=== PATIENT | male | born 1990 | race Caucasian/White ===

== ENCOUNTER 2024-07-02 05:27 | Inpatient (IN) | payer MEDICAID ==
[~2024-07-02] VITALS: Ht 172.7 cm; Wt 84.4 kg
[2024-07-02] MEDS: KETOROLAC TROMETHAMINE 15 MG/ML VIAL IV ONE (06:30)
[2024-07-02] MEDS: PANTOPRAZOLE 40 MG VIAL IV ONE (06:30)
[2024-07-02] MEDS: ONDANSETRON HCL/PF 4 MG/2 ML VIAL IVP ONE (06:30)
[2024-07-02] MEDS: IV NS 0.9% 1,000 ML BAG IV ONE ×2 (06:30→10:00)
[2024-07-02] MEDS ORDERED: KETOROLAC TROMETHAMINE INJ 30 MG/ML VIAL ONE (06:39)
[2024-07-02] MEDS ORDERED: ONDANSETRON HCL/PF 4 MG/2 ML VIAL ONE (06:39)
[2024-07-02] MEDS ORDERED: PANTOPRAZOLE 40 MG VIAL ONE (06:39)
[2024-07-02] MEDS ORDERED: IOHEXOL-300 100 ML VIAL IV ONE (06:49)
[2024-07-02] MEDS ORDERED: IV NS 0.9% 250 ML IV ONE (06:49)
[2024-07-02] MEDS ORDERED: CT SWABBABLE VALVE TRANS SET 1 EA INFUS.SET MC ONE (06:49)
[2024-07-02 06:52] LABS: APPEARANCE,URINE CLEAR (CLEAR); BASOPHILS % (AUTO) 0.2 % (0.0-2.0); BILIRUBIN,URINE NEGATIVE (NEGATIVE); BLOOD, URINE NEGATIVE Ery/uL (NEGATIVE); COLOR,URINE YELLOW (YELLOW); EOSINOPHILS % (AUTO) 0.1 % (0.0-6.0); HEMATOCRIT 42 % (39-51); HEMOGLOBIN 14.2 g/dL (13.5-17.5); KETONES,URINE NEGATIVE (NEGATIVE); LEUKOCYTE ESTERASE ,URINE NEGATIVE (NEGATIVE); LYMPHOCYTES # (AUTO) 0.9 K/uL (0.8-4.8); LYMPHOCYTES % (AUTO) 6.3 % (20.0-44.0); MEAN CORPUSCULAR HEMOGLOBIN 29 PG (26.0-33.0); MEAN CORPUSCULAR HGB CONC 34 g/dl (31.0-36.0); MEAN CORPUSCULAR VOLUME 86 fL (80-96); MONOCYTES # (AUTO) 1.1 K/uL (0.1-1.30); MONOCYTES % (AUTO) 8.1 % (2.0-12.0); NEUTROPHILS # (AUTO) 11.6 K/uL (1.8-8.9); NEUTROPHILS % (AUTO) 85.3 % (43.0-81.0); NITRITE, URINE NEGATIVE (NEGATIVE); PLATELET COUNT (AUTO) 217 K/uL (150-450); PROTEIN,URINE NEGATIVE (NEGATIVE); RED BLOOD CELL COUNT(AUTO) 4.87 MIL/uL (4.5-6.0); RED CELL DISTRIBUTION WIDTH 13.3 % (11.5-15.0); UGLUCOSE NEGATIVE (NEGATIVE); UROBILINOGEN,URINE 0.2 EU/dL (0.2); WHITE BLOOD COUNT (AUTO) 13.6 K/uL (4.3-11.0)
[2024-07-02 07:05] LABS: CALCIUM, SERUM 9.2 mg/dL (8.5-10.1); CREATININE 1.1 mg/dL (0.6-1.3); POTASSIUM 3.4 mmol/L (3.5-5.1)
[2024-07-02 07:11] LABS: BILIRUBIN,DIRECT 0.2 mg/dL (0.0-0.2); BILIRUBIN,TOTAL 0.6 mg/dL (0.2-1.0); TOTAL PROTEIN, SERUM 8.5 g/dL (6.4-8.2)
[2024-07-02] MEDS: PIPERACILLIN /TAZOBACTAM 3.375 G in IV D5W 50 ML IV ONE (08:50)
[2024-07-02] MEDS: IV PREMIX D5 1/2NS + KCL 1,000 ML IV ONE (09:25)
[2024-07-02] MEDS ORDERED: Z GUARD REMEDY 4 OZ OINT TP PRN (10:30)
[2024-07-02] MEDS ORDERED: MAG HYDROX/AL HYDROX/SIMETH 30 ML UDC PO PRN (10:30)
[2024-07-02] MEDS ORDERED: ONDANSETRON HCL/PF 4 MG/2 ML VIAL IVP PRN (10:30)
[2024-07-02] MEDS ORDERED: MORPHINE SULFATE INJ 2 MG/ML DISP.SYRIN IV PRN (10:30)
[2024-07-02] MEDS ORDERED: PANTOPRAZOLE 40 MG VIAL IV SCH (10:30)
[2024-07-02] MEDS ORDERED: MAGNESIUM HYDROXIDE 30 ML UDC PO PRN (10:30)
[2024-07-02] MEDS ORDERED: PIPERACILLIN /TAZOBACTAM 3.375 G in IV D5W 50 ML IV SCH (12:00)
[2024-07-02] MEDS: PIPERACILLIN /TAZOBACTAM 3.375 G in IV D5W 100 ML IV SCH (13:40)
[2024-07-02] MEDS ORDERED: LIDOCAINE 1%-EPI 1:100,000 20 ML VIAL ONE (14:50)
[2024-07-02] MEDS ORDERED: BUPIVACAINE 0.5 % PF 150 MG/30 ML VIAL ONE (14:50)
[2024-07-02] MEDS ORDERED: BACITRACIN ZINC OINT (15 GM) 15 GM TUBE TP ONE (14:50)
[2024-07-02] MEDS ORDERED: FENTANYL PF 250MCG/5ML AMPUL ONE (15:00)
[2024-07-02] MEDS ORDERED: ROCURONIUM BROMIDE 50 MG/5 ML ONE (15:04)
[2024-07-02 16:45] VITALS: BP 107/56; TEMP 101.1; O2SAT 93
[2024-07-02] MEDS: ACETAMINOPHEN 325 MG TABLET PO PRN (16:58)
[2024-07-02 17:00] VITALS: BP 106/59; TEMP 100.2; O2SAT 94
[2024-07-02] MEDS: IV D5/ 0.9% NACL 1,000 ML IV PRN (17:08)
[2024-07-02 17:15] VITALS: BP 98/54; TEMP 99; O2SAT 95
[2024-07-02 17:30] VITALS: BP 105/58; TEMP 99.2; O2SAT 95
[2024-07-02 17:45] VITALS: BP 114/56; TEMP 99.5; O2SAT 95
[2024-07-02 22:00] VITALS: BP 116/65; TEMP 99; O2SAT 98
[2024-07-03] VITALS (7 sets, daily range): BP systolic 110–131; BP diastolic 65–70; TEMP 98–99.5; O2SAT 95–98
[2024-07-03] MEDS: HYDROMORPHONE INJ 2 MG/ML DISP.SYRIN IV PRN (00:23)
[2024-07-03] MEDS: PANTOPRAZOLE 40 MG VIAL IV SCH (08:23)
[2024-07-03 22:08] LABS: BASOPHILS % (AUTO) 0.3 % (0.0-2.0); EOSINOPHILS # (AUTO) 0.1 K/uL (0.0-0.7); EOSINOPHILS % (AUTO) 0.6 % (0.0-6.0); HEMATOCRIT 39 % (39-51); HEMOGLOBIN 13.2 g/dL (13.5-17.5); LYMPHOCYTES # (AUTO) 1.6 K/uL (0.8-4.8); LYMPHOCYTES % (AUTO) 15.2 % (20.0-44.0); MEAN CORPUSCULAR HEMOGLOBIN 29 PG (26.0-33.0); MEAN CORPUSCULAR HGB CONC 34 g/dl (31.0-36.0); MEAN CORPUSCULAR VOLUME 86 fL (80-96); MONOCYTES # (AUTO) 0.9 K/uL (0.1-1.30); MONOCYTES % (AUTO) 8.2 % (2.0-12.0); NEUTROPHILS % (AUTO) 75.7 % (43.0-81.0); PLATELET COUNT (AUTO) 186 K/uL (150-450); RED BLOOD CELL COUNT(AUTO) 4.52 MIL/uL (4.5-6.0); RED CELL DISTRIBUTION WIDTH 13.4 % (11.5-15.0); WHITE BLOOD COUNT (AUTO) 10.5 K/uL (4.3-11.0)
[2024-07-03 22:12] LABS: CALCIUM, SERUM 8.9 mg/dL (8.5-10.1); CREATININE 1.2 mg/dL (0.6-1.3); MAGNESIUM 2.1 mg/dL (1.8-2.4); PHOSPHORUS 2.3 mg/dL (2.5-4.9); POTASSIUM 3.2 mmol/L (3.5-5.1)
[2024-07-03] MEDS: POTASSIUM CHLORIDE 20 MEQ TAB.PRT.SR PO ONE (23:41)
[2024-07-04 07:20] LABS: BASOPHILS % (AUTO) 0.1 % (0.0-2.0); EOSINOPHILS # (AUTO) 0.1 K/uL (0.0-0.7); EOSINOPHILS % (AUTO) 1.3 % (0.0-6.0); HEMATOCRIT 37 % (39-51); HEMOGLOBIN 12.8 g/dL (13.5-17.5); LYMPHOCYTES # (AUTO) 0.9 K/uL (0.8-4.8); LYMPHOCYTES % (AUTO) 8.9 % (20.0-44.0); MEAN CORPUSCULAR HEMOGLOBIN 30 PG (26.0-33.0); MEAN CORPUSCULAR HGB CONC 35 g/dl (31.0-36.0); MEAN CORPUSCULAR VOLUME 86 fL (80-96); MONOCYTES # (AUTO) 0.9 K/uL (0.1-1.30); MONOCYTES % (AUTO) 9.2 % (2.0-12.0); NEUTROPHILS % (AUTO) 80.5 % (43.0-81.0); PLATELET COUNT (AUTO) 193 K/uL (150-450); RED BLOOD CELL COUNT(AUTO) 4.26 MIL/uL (4.5-6.0); RED CELL DISTRIBUTION WIDTH 13.1 % (11.5-15.0); WHITE BLOOD COUNT (AUTO) 9.9 K/uL (4.3-11.0)
[2024-07-04 07:40] LABS: MAGNESIUM 2.2 mg/dL (1.8-2.4); PHOSPHORUS 1.5 mg/dL (2.5-4.9); POTASSIUM 3.5 mmol/L (3.5-5.1)
[2024-07-04 08:00] VITALS: BP 131/74; TEMP 101.1; O2SAT 96
[2024-07-04] MEDS: PANTOPRAZOLE 40 MG/PACK PACK GT SCH (09:48)
[2024-07-04] MEDS ORDERED: METR500T PO (10:37)
[2024-07-04] MEDS ORDERED: CIPR-262 PO (10:37)
[2024-07-04] MEDS ORDERED: HYDR-3972 PO (10:37)
[2024-07-04] MEDS ORDERED: ACID1TAB12 PO (10:37)
[2024-07-04] MEDS ORDERED: ONDA4TAB5 PO (10:37)
[2024-07-04] MEDS: K PHOS NEUTRAL 250 MG TABLET PO ONE (15:56)
[2024-07-04 16:00] VITALS: BP 123/69; TEMP 101.1; O2SAT 98
[2024-07-04 20:00] VITALS: BP 136/81; TEMP 99.7; O2SAT 98
[2024-07-05 07:56] LABS: BASOPHILS % (AUTO) 0.1 % (0.0-2.0); EOSINOPHILS # (AUTO) 0.3 K/uL (0.0-0.7); EOSINOPHILS % (AUTO) 4.3 % (0.0-6.0); HEMATOCRIT 38 % (39-51); HEMOGLOBIN 13.2 g/dL (13.5-17.5); LYMPHOCYTES # (AUTO) 1.2 K/uL (0.8-4.8); LYMPHOCYTES % (AUTO) 15.5 % (20.0-44.0); MEAN CORPUSCULAR HEMOGLOBIN 30 PG (26.0-33.0); MEAN CORPUSCULAR HGB CONC 35 g/dl (31.0-36.0); MEAN CORPUSCULAR VOLUME 86 fL (80-96); MONOCYTES # (AUTO) 0.8 K/uL (0.1-1.30); MONOCYTES % (AUTO) 10.5 % (2.0-12.0); NEUTROPHILS # (AUTO) 5.3 K/uL (1.8-8.9); NEUTROPHILS % (AUTO) 69.6 % (43.0-81.0); PLATELET COUNT (AUTO) 237 K/uL (150-450); RED BLOOD CELL COUNT(AUTO) 4.41 MIL/uL (4.5-6.0); RED CELL DISTRIBUTION WIDTH 13.1 % (11.5-15.0); WHITE BLOOD COUNT (AUTO) 7.6 K/uL (4.3-11.0)
[2024-07-05 08:00] VITALS: BP 127/82; TEMP 99.3; O2SAT 95
[2024-07-05 08:05] LABS: CALCIUM, SERUM 9.3 mg/dL (8.5-10.1); CREATININE 0.9 mg/dL (0.6-1.3); POTASSIUM 3.3 mmol/L (3.5-5.1)
[2024-07-05] MEDS: POTASSIUM CHLORIDE 20 MEQ POWDER PACKET PO ONE (09:11)
== END 2024-07-05 18:30 | disposition home or self-care (01) | DRG 233 ==
LOC: ER 05:27 → TRANSITION 10:52 → MED 14:47
PROVIDERS: ADMIT Nurse Practitioner Acute Care; ATTEND Nurse Practitioner Acute Care
PROC: 0DTJ4ZZ Resection of Appendix, Percutaneous Endoscopic Approach (ICD-10-PCS; principal; 2024-07-02)
DX: K35.32 Acute appendicitis with perforation, localized peritonitis, and gangrene, without abscess (principal); D72.829 Elevated white blood cell count, unspecified; E87.6 Hypokalemia
CPT/HCPCS: 36415; 71045-TC; 80048-TC; 80076-TC; 83690-TC; 83735-TC; 84100-TC; 85025-TC; A4223; G0378; J1171; J1885; J2405; J2470; J2543; J2704; J2765; J3010; J3490; J7030; J7042; J7050; J7060; Q9967

== ENCOUNTER 2024-07-16 10:48 | Emergency (ER) | payer MEDICAID ==
[~2024-07-16] VITALS: Ht 172.7 cm; Wt 83.9 kg
[~2024-07-16 10:48] MED LIST: ACID1TAB12 PO; CIPR-262 PO; HYDR-3972 PO; METR500T PO; ONDA4TAB5 PO
[2024-07-16 10:57] VITALS: BP 136/69; TEMP 98.4; O2SAT 99
== END 2024-07-16 12:04 | disposition home or self-care (01) ==
LOC: ER 10:56
DX: Z48.02 Encounter for removal of sutures (principal); Z90.49 Acquired absence of other specified parts of digestive tract